=== PATIENT | female | born 1955 | race Caucasian/White ===

== ENCOUNTER 2022-07-28 13:38 | Emergency (ER) | payer OTHER, SELFPAY ==
[2022-07-28] VITALS (18 sets, daily range): BP systolic 198–227; BP diastolic 98–117; PULSE 77–90; RESP 16–18; TEMP 37; O2SAT 94–97; BMI 21.1
--- NOTE | 2022-07-28 14:35 | DI.RAD.S_ITS ---
PROCEDURE: XR CHEST 1V INDICATIONS: chest pain TECHNIQUE: One view of the chest was acquired. COMPARISON: None. FINDINGS: Surgical changes and devices: None. Lungs and pleura: Lungs are clear. No pleural effusions or pneumothorax. Mediastinum: Mediastinal contours appear normal. Heart size is normal. Bones and chest wall: No suspicious bony lesions. Overlying soft tissues appear unremarkable. IMPRESSION: No acute cardiopulmonary abnormality. Dictated by: Parag Man M.D. on 07/28/2022 at 16:18 Approved by: Parag Man M.D. on 07/28/2022 at 16:18
[2022-07-28 15:08] LABS: Add Manual Diff / Slide Review NO; Basophils Absolute Auto 100 /uL (0-100); Basophils Percent Auto 0.9 % (0-2); Eosinophils Absolute Auto 0 /uL (0-450); Eosinophils Percent Auto 0.1 % (2-4); Hematocrit 39.2 % (36-46); Hemoglobin 13.2 g/dL (12.0-16.0); Lymphocytes Absolute Auto 1700 /uL (1100-4500); Lymphocytes Percent Auto 19.5 % (25-40); Mean Corpuscular HGB Conc 33.7 % (30-36); Mean Corpuscular Hemoglobin 33.2 PG (26-34); Mean Corpuscular Volume 98.3 fL (80-100); Monocytes Absolute Auto 1200 /uL (0-900); Neutrophils Absolute Auto 5600 /uL (1500-7000); Neutrophils Percent Auto 65.5 % (50-75); Platelet Count 199 X10^3/uL (150-400); Red Blood Cell Count 3.99 X10^6/uL (4.0-5.2); Red Cell Distribution Width 13.5 % (11.6-14.8); White Blood Cell Count 8.5 X10^3/uL (4.5-11.0)
--- NOTE | 2022-07-28 15:14 | PC.NURSE ---
Pt is a pack a day smoker, with recent medication non-compliance due to weather, and presents with high blood pressure. BP is 210/106 at this time. Last took BP meds on Thursday. Pt also reports chronic drinking with last drink as a sip at 1030 am, and 2-3 beers last night. Pt reports drinking 1 pint of vodka on her days off and 3-4 beers a night. Pt daughter is very concerned. Pt reports prior hx of alcohol withdrawal with detox at a facility. Pt denies chest pain. Reports some SOB. RR WNL at this time. 94% on RA. Call light within reach. SENIOR SOFTWARE TEST ENGINEER consult placed. Provider made aware of situation.
[2022-07-28 15:20] LABS: Prothrombin Time 11.7 SECONDS (10.1-12.7)
[2022-07-28 15:23] LABS: PTT Partial Thromboplastin Tim 29 SECONDS (26-36)
[2022-07-28 15:26] LABS: Alanine Aminotransferase 109 IU/L (<35); Albumin Globulin Ratio 1.2 (1.0-2.8); Alkaline Phosphatase 150 U/L (38-126); Aspartate Aminotransferase 153 IU/L (14-36); BUN Creatinine Ratio 26.7 (6-22); Bilirubin Total 0.7 mg/dL (0.2-1.3); Blood Urea Nitrogen 12 mg/dL (7-17); Calcium 10.4 mg/dL (8.4-10.2); Carbon Dioxide 34 mmol/L (22-32); Chloride 101 mmol/L (98-107); Creatine Kinase 48 U/L (30-135); Estimated Glomerular Filt Rate > 60 mL/min (>60); Ethanol (ETOH) < 10 mg/dL; Globulin 3.4 g/dL (1.7-4.1); Glucose 112 mg/dL (80-110); HEMOLYSIS < 15 (0-50); Lipase 106 U/L (23-300); Magnesium 1.7 mg/dL (1.6-2.3); Sodium 140 mmol/L (137-145); Total Protein 7.4 g/dL (6.3-8.2)
[2022-07-28 15:37] LABS: Troponin I < 0.012 ng/mL (0.01-0.034)
[2022-07-28 16:04] LABS: Influenza A - CEPHEID Flu A NEGATIVE (NEGATIVE); Influenza B - CEPHEID Flu B NEGATIVE (NEGATIVE); Respiratory Syncytial Virus Negative (Negative)
[2022-07-28 16:06] LABS: COVID-19 CEPHEID 4-PLEX PCR Negative (Negative)
--- NOTE | 2022-07-28 16:27 | ED.GENADULT ---
HPI - General Adult General Chief complaint: Hypertension Stated complaint: High Blood Pressure Time Seen by Provider: 07/28/22 14:38 Source: patient Mode of arrival: Ambulatory History of Present Illness HPI narrative: Patient is a 66-year-old female history of alcohol abuse, 30 pack-year smoking, hypertension presenting today with high blood pressure and shaking. Daughters are at bedside. She states that she was shaking a little bit this morning and daughter took blood pressure and was noted it to be quite elevated. She does take hydralazine and losartan she says that he was unable to draft roller picker her refill medications due to severe weather. Patient states that she did drink more heavily this weekend than she normally does due to the holiday. But does admit to drinking 3-4 beers every night and definitely more on the weekends. She did have a little bit of shakes this morning but took 1 shot she is not actively shaking now. She is been 3 days without her hydralazine and losartan. She is having some mild shortness of breath but no chest pain. She is noted a light headache all day. Blood pressure is persistently elevated in the 200s here in the emergency department. She denies any fever or chills. No abdominal pain nausea or vomiting. Related Data Home Medications Medication Instructions Recorded Confirmed hydrochlorothiazide 12.5 mg tablet 12.5 mg PO QAM 07/28/22 07/28/22 losartan 50 mg tablet 50 mg PO QAM 07/28/22 07/28/22 Allergies Allergy/AdvReac Type Severity Reaction Status Date / Time codeine AdvReac Intermediate Nausea Verified 07/28/22 16:24 Review of Systems Review of Systems ROS Unobtainable: All systems reviewed & are unremarkable except as noted in HPI and below Patient History Social History Smoking Status: Current every day smoker Smoking Status: Current every day smoker Alcohol type: beer and hard liquor Substance Use Type: marijuana Exam Initial Vital Signs Initial Vital Signs: Vital Signs Temperature 98.6 F 07/28/22 14:25 Pulse Rate 90 07/28/22 14:25 Respiratory Rate 16 07/28/22 14:25 Blood Pressure 227/117 H 07/28/22 14:25 Pulse Oximetry 96 07/28/22 14:25 Oxygen Delivery Method 07/28/22 14:25 GENERAL: Alert pleasant 66-year-old female appears older than stated age and in no acute distress. HEENT: Head atraumatic,EOMI, pupils reactive, face symmetric, moist mucous membranes CARDIOVASCULAR: Regular rate and rhythm without murmurs, rubs or gallops. RESPIRATORY: Breath sounds equal bilaterally, no wheezes rales or rhonchi. ABDOMEN: Soft, nontender. Normoactive bowel sounds all 4 quadrants. No guarding or rebound. No right upper quadrant EXTREMITIES: Normal range of motion, no clubbing or edema. Neurovascularly intact NEUROLOGICAL: Alert and oriented x4.Normal gait and speech SKIN: Warm, dry, no laceration, no petechiae, no rashes or lesions. Course Orders Ordered: ED Orders 07/28/22 14:35 XR chest 1V Stat EKG-12 Lead Stat 07/28/22 14:36 Consult to NETWORK SUPPORT ANALYST - [employer] Stat 07/28/22 14:55 Complete Blood Count AUTO DIFF Stat Comprehensive Metabolic Panel Stat Covid-19 + FLU A/B + RSV - PCR Stat ETOH [Ethanol (ETOH)] Stat Lipase Stat Magnesium Stat Partial Thromboplastin Time Stat Prothrombin Time INR Stat Troponin & CK Cardiac Panel Stat Discontinued Medications Hydrochlorothiazide (Hydrochlorothiazide 25 Mg Tablet) 12.5 mg PO NOW ONE Stop: 07/28/22 16:27 Last Admin: 07/28/22 16:38 Dose: 12.5 mg Documented By: MEGAN Losartan Potassium (Losartan 50 Mg Tablet) 50 mg PO NOW ONE Stop: 07/28/22 16:27 Last Admin: 07/28/22 16:39 Dose: 50 mg Documented By: MEGAN Vital Signs Vital signs: Vital Signs - 8 hr 07/28/22 14:25 07/28/22 16:39 07/28/22 14:47 Temperature 98.6 F Pulse Rate 90 78 Respiratory Rate 16 Blood Pressure 227/117 H 198/99 H 213/104 H Pulse Oximetry 96 Oxygen Delivery Method Room Air 07/28/22 14:47 07/28/22 14:50 07/28/22 14:50 Temperature Pulse Rate 83 81 Respiratory Rate Blood Pressure 199/101 H Pulse Oximetry 95 95 Oxygen Delivery Method 07/28/22 15:00 07/28/22 15:02 07/28/22 15:02 Temperature Pulse Rate 81 80 Respiratory Rate Blood Pressure 207/104 H Pulse Oximetry 94 94 Oxygen Delivery Method 07/28/22 15:15 07/28/22 15:15 07/28/22 15:30 Temperature Pulse Rate 78 77 Respiratory Rate Blood Pressure 210/106 H Pulse Oximetry 94 95 Oxygen Delivery Method 07/28/22 15:31 07/28/22 15:31 07/28/22 15:47 Temperature Pulse Rate 78 82 Respiratory Rate Blood Pressure 204/98 H Pulse Oximetry 95 Oxygen Delivery Method 07/28/22 15:49 07/28/22 15:49 07/28/22 16:00 Temperature Pulse Rate 77 Respiratory Rate Blood Pressure 218/107 H 211/101 H Pulse Oximetry 97 Oxygen Delivery Method 07/28/22 16:00 07/28/22 16:15 07/28/22 16:15 Temperature Pulse Rate 78 77 Respiratory Rate Blood Pressure 215/100 H Pulse Oximetry 96 96 Oxygen Delivery Method 07/28/22 16:30 07/28/22 16:31 07/28/22 16:31 Temperature Pulse Rate 81 82 Respiratory Rate Blood Pressure 198/99 H Pulse Oximetry 96 95 Oxygen Delivery Method 07/28/22 16:45 07/28/22 16:59 07/28/22 16:59 Temperature Pulse Rate 78 84 Respiratory Rate Blood Pressure 218/110 H Pulse Oximetry 95 95 Oxygen Delivery Method 07/28/22 17:00 Temperature Pulse Rate 78 Respiratory Rate 18 Blood Pressure Pulse Oximetry 95 Oxygen Delivery Method Room Air Medical Decision Making Lab Data Result diagrams: 07/28/22 14:55 07/28/22 14:55 Labs: Lab Results 07/28/22 07/28/22 07/28/22 Range/Units 14:55 14:55 14:55 WBC 8.5 (4.5-11.0) X10^3/uL RBC 3.99 L (4.0-5.2) X10^6/uL Hgb 13.2 (12.0-16.0) g/dL Hct 39.2 (36-46) % MCV 98.3 (80-100) fL MCH 33.2 (26-34) PG MCHC 33.7 (30-36) % RDW 13.5 (11.6-14.8) % Plt Count 199 (150-400) X10^3/uL Neut % (Auto) 65.5 (50-75) % Lymph % (Auto) 19.5 L (25-40) % [place] % (Auto) 14.0 (3-14) % Eos % (Auto) 0.1 L (2-4) % Baso % (Auto) 0.9 (0-2) % Neut # (Auto) 5600 (3282-3561) /uL Lymph # (Auto) 1700 (6988-3469) /uL [place] # (Auto) 1200 H (0-900) /uL Eos # (Auto) 0 (0-450) /uL Baso # (Auto) 100 (0-100) /uL PT 11.7 (10.1-12.7) SECONDS INR 1.0 (0.9-1.3) APTT 29 (26-36) SECONDS Sodium 140 (137-145) mmol/L Potassium 3.0 L (3.4-5.1) mmol/L Chloride 101 (98-107) mmol/L Carbon Dioxide 34 H (22-32) mmol/L BUN 12 (7-17) mg/dL Creatinine 0.45 L (0.52-1.04) mg/dL Estimated GFR > 60 (>60) mL/min BUN/Creatinine Ratio 26.7 H (6-22) Glucose 112 H (80-110) mg/dL Calcium 10.4 H (8.4-10.2) mg/dL Magnesium 1.7 (1.6-2.3) mg/dL Total Bilirubin 0.7 (0.2-1.3) mg/dL AST 153 H (14-36) IU/L ALT 109 H (<35) IU/L Alkaline Phosphatase 150 H (38-126) U/L Total Creatine Kinase 48 (30-135) U/L CK-MB (CK-2) TNP CK-MB (CK-2) Rel Index TNP Troponin I < 0.012 (0.01-0.034) ng/mL Total Protein 7.4 (6.3-8.2) g/dL Albumin 4.0 (3.5-5.0) g/dL Globulin 3.4 (1.7-4.1) g/dL Albumin/Globulin Ratio 1.2 (1.0-2.8) Lipase 106 (23-300) U/L Ethyl Alcohol ( - 10) mg/dL SARS-CoV-2 (PCR) (Negative) Influenza A (RT-PCR) (NEGATIVE) Influenza B (RT-PCR) (NEGATIVE) RSV (PCR) (Negative) 07/28/22 07/28/22 Range/Units 14:55 14:55 WBC (4.5-11.0) X10^3/uL RBC (4.0-5.2) X10^6/uL Hgb (12.0-16.0) g/dL Hct (36-46) % MCV (80-100) fL MCH (26-34) PG MCHC (30-36) % RDW (11.6-14.8) % Plt Count (150-400) X10^3/uL Neut % (Auto) (50-75) % Lymph % (Auto) (25-40) % [place] % (Auto) (3-14) % Eos % (Auto) (2-4) % Baso % (Auto) (0-2) % Neut # (Auto) (0320-9590) /uL Lymph # (Auto) (9516-7410) /uL [place] # (Auto) (0-900) /uL Eos # (Auto) (0-450) /uL Baso # (Auto) (0-100) /uL PT (10.1-12.7) SECONDS INR (0.9-1.3) APTT (26-36) SECONDS Sodium (137-145) mmol/L Potassium (3.4-5.1) mmol/L Chloride (98-107) mmol/L Carbon Dioxide (22-32) mmol/L BUN (7-17) mg/dL Creatinine (0.52-1.04) mg/dL Estimated GFR (>60) mL/min BUN/Creatinine Ratio (6-22) Glucose (80-110) mg/dL Calcium (8.4-10.2) mg/dL Magnesium (1.6-2.3) mg/dL Total Bilirubin (0.2-1.3) mg/dL AST (14-36) IU/L ALT (<35) IU/L Alkaline Phosphatase (38-126) U/L Total Creatine Kinase (30-135) U/L CK-MB (CK-2) CK-MB (CK-2) Rel Index Troponin I (0.01-0.034) ng/mL Total Protein (6.3-8.2) g/dL Albumin (3.5-5.0) g/dL Globulin (1.7-4.1) g/dL Albumin/Globulin Ratio (1.0-2.8) Lipase (23-300) U/L Ethyl Alcohol < 10 ( - 10) mg/dL SARS-CoV-2 (PCR) Negative (Negative) Influenza A (RT-PCR) Flu a negative (NEGATIVE) Influenza B (RT-PCR) Flu b negative (NEGATIVE) RSV (PCR) Negative (Negative) Urine Dip Bedside Urine Glucose Negative Bedside Urine Bilirubin - Negative Bedside Urine Ketone - Negative Urine Specific [place] 1.010 Bedside Urine Occult Blood - Negative Bedside Urine pH 8.0 Bedside Urine Protein - Negative Bedside Urine Urobilinogen - Negative Bedside Urine Nitrite - Negative Bedside Urine Leukocytes - Negative Esterase Point of care testing: Urine Dip Bedside Urine Glucose Negative Bedside Urine Bilirubin - Negative Bedside Urine Ketone - Negative Urine Specific [place] 1.010 Bedside Urine Occult Blood - Negative Bedside Urine pH 8.0 Bedside Urine Protein - Negative Bedside Urine Urobilinogen - Negative Bedside Urine Nitrite - Negative Bedside Urine Leukocytes - Negative Esterase Imaging Data Chest x-ray: Radiologist's Impression: Signed Patient: Giles Prado MR#: [id number] : 1955 Acct:[id number] Age/Sex: 66 / F Date of Service: 07/28/22 Loc: Accession Number: [id number] ?? Procedure: XR chest 1V Ordering Provider: Charisse Gilbert D.O. PROCEDURE:? XR CHEST 1V ? INDICATIONS:? chest pain ? TECHNIQUE:? One view of the chest was acquired.? ? COMPARISON:? None. ? FINDINGS:? ? Surgical changes and devices:? None.? ? Lungs and pleura:? Lungs are clear.? No pleural effusions or pneumothorax.? ? Mediastinum:? Mediastinal contours appear normal.? Heart size is normal.? ? Bones and chest wall:? No suspicious bony lesions.? Overlying soft tissues appear unremarkable.? ? IMPRESSION:? No acute cardiopulmonary abnormality. ? ? ? Dictated by: Parag Man M.D. on 07/28/2022 at 16:18 ? ? ECG Data Interpretation: EKG 1. Significant artifact noted possible ST depression sinus rhythm rate 85 T-wave inversion in lead 3 EKG 2. Normal sinus rhythm rate 81 CO interval 170 QRS [address] changes T-wave inversion noted in lead 3 only similar to EKGs MDM Narrative Medical decision making narrative: Patient has extreme high blood pressure no chest pain minimal headache neurovascularly she is intact. At this time I do not see need for CT scan for dissection. She has no signs of end-organ damage. She does have some elevated liver enzymes probably due to alcohol use. Refill medications already in the ED to the pharmacy in order to pick them up. Patient takes hydrochlorothiazide and losartan which she has been out of. We did discuss her alcohol use she is not actively shaking or hallucinating no sign of DTs currently however it has not yet been 24 hours since her last drank she had a shot this morning. We discussed detox. At this time she is given resources and instructions to call. We also discussed how important it is for her to take her blood pressure medications. Discharge Plan Departure Patient Disposition: Home Clinical Impression: Hypertension, Alcohol abuse Instructions: Alcohol Use Disorder, DI for High Blood Pressure Activity Restrictions/Additional Instructions: *You have been diagnosed with high blood pressure, alcohol abuse *What to do: At this time you must take your blood pressure medication so your blood pressure doesn't get out of control. If you are interested in detoxing from alcohol please call the resources given to you. Do not stop drinking alcohol cold turkey you may have heart arrhythmia and or seizure. *Continue to take medications as directed *Follow up with your primary care provider in 2-3 days or call [phone] *Return to ER if you should have blood pressure greater than 200/100, severe headache chest pain, shaking, hallucinating or any new, worsening or concerning symptoms Prescriptions: No Action losartan 50 mg tablet 50 mg PO QAM hydrochlorothiazide 12.5 mg tablet 12.5 mg PO QAM Referrals: Osmin Romero MD [Primary Care Provider] - Visit Report Forms: Patient Portal/API
[2022-07-28] MEDS: hydroCHLOROthiazide 25 MG TABLET 12.5 MG PO (16:38)
[2022-07-28] MEDS: LOSARTAN 50 MG TABLET PO (16:39)
--- NOTE | 2022-07-28 16:50 | CM.SWNOTE ---
ED SW Note Patient is a 66-year-old female history of alcohol abuse, 30 pack-year smoking, hypertension presenting today with high blood pressure and shaking. Pt has [employer] insurance. SW consulted to provide detox resources. SW met pt and daughter in room and provided a list of detox facilities and their contact information. SW advised that insurance is accepted and walked through Medicaid application and eligibility. Plan: Pt will discharge home with plan to follow up with detox when she is ready. JACQUIE Velasco
== END 2022-07-28 17:17 | disposition home or self-care (01) ==
PROVIDERS: Emergency Provider Emergency Medicine; PCP Internal Medicine
DX: I10 Essential (primary) hypertension (principal); F10.10 Alcohol abuse, uncomplicated; R07.9 Chest pain, unspecified; Z20.822 Contact with and (suspected) exposure to COVID-19
CPT/HCPCS: 0241U; 36415; 71045; 80053; 80320; 81003; 82550; 83690; 83735; 84484; 85025; 85610; 85730; 93005; 99284